=== PATIENT | female | born 1945 | race African-American/Black ===

== ENCOUNTER 2017-01-16 08:48 | Inpatient (IN) | payer OTHER ==
--- NOTE | 2017-01-16 08:57 | PDOC ---
History of Present Illness <Glynn Reyes - Last Filed: 01/16/17 10:54> - History of Present Illness Initial Comments: 01/16/17 08:56 Patient is a 72 year old female with history of NIDDM, HTN, HLD and breast CA s/ p left mastectomy (2004) who was BIBA with report of possible TIA/CVA. Patient woke at 1:00 to go to the bathroom and felt dizzy, described as the room was spinning, not being light headed. The feeling was persistent and unchanged when standing or lying still. Patient went back to sleep and endorses feeling unchanged upon waking at 05:00 and again at 06:00. At 06:00 patient Patient takes daily ASA 81mg. and was still feeling dixxyafter report of slurred speech at 1 hour ago. EMS reports benign neuro exam at home. 01/16/17 09:25 01/16/17 10:02 01/16/17 10:47 CBC WBC 7.4 K/mm3 (4.0-10.0) D 01/16/17 09:50 RBC 4.61 M/mm3 (3.60-5.2) 01/16/17 09:50 Hgb 12.6 GM/dL (10.7-15.3) D 01/16/17 09:50 Hct 38.0 % (32.4-45.2) 01/16/17 09:50 MCV 82.3 fl (80-96) 01/16/17 09:50 MCH 27.2 pg (25.7-33.7) 01/16/17 09:50 MCHC 33.1 g/dl (32.0-36.0) 01/16/17 09:50 RDW 16.9 % (11.6-15.6) H 01/16/17 09:50 Plt Count 204 K/MM3 (134-434) 01/16/17 09:50 MPV 8.5 fl (7.5-11.1) 01/16/17 09:50 Neutrophils % 65.6 % (42.8-82.8) D 01/16/17 09:50 Lymphocytes % 26.5 % (8-40) D 01/16/17 09:50 Monocytes % 6.4 % (3.8-10.2) D 01/16/17 09:50 Eosinophils % 1.2 % (0-4.5) D 01/16/17 09:50 Basophils % 0.3 % (0-2.0) 01/16/17 09:50 CMP Sodium 139 mmol/L (136-145) 01/16/17 09:50 Potassium 3.8 mmol/L (3.5-5.1) 01/16/17 09:50 Chloride 101 mmol/L (98-107) 01/16/17 09:50 Carbon Dioxide 30 mmol/L (21-32) 01/16/17 09:50 Anion Gap 8 (8-16) 01/16/17 09:50 BUN 12 mg/dL (7-18) D 01/16/17 09:50 Creatinine 0.7 mg/dL (0.55-1.02) 01/16/17 09:50 Creat Clearance w eGFR > 60 (>60) 01/16/17 09:50 Random Glucose 198 mg/dL (74-106) H D 01/16/17 09:50 Calcium 8.6 mg/dL (8.5-10.1) 01/16/17 09:50 Total Bilirubin 0.9 mg/dL (0.2-1.0) D 01/16/17 09:50 AST 14 U/L (15-37) L D 01/16/17 09:50 ALT 21 U/L (12-78) 01/16/17 09:50 Alkaline Phosphatase 81 U/L (45-117) 01/16/17 09:50 Total Protein 7.8 g/dl (6.4-8.2) 01/16/17 09:50 Albumin 3.7 g/dl (3.4-5.0) 01/16/17 09:50 Triglycerides 158 mg/dL (35-160) 01/16/17 09:50 Cholesterol 130 mg/dL (50-200) 01/16/17 09:50 Total LDL Cholesterol 56 mg/dL (5-100) 01/16/17 09:50 HDL Cholesterol 55 mg/dL (40-60) 01/16/17 09:50 Grossly within normal limits, non concerning 01/16/17 10:49 Patient Risk Score is moderate (5) Dr. Adam to follow up with qingpo <Stephen Castro - Last Filed: 01/16/17 13:31> - General Chief Complaint: CVA/TIA Stated Complaint: CVA/TIA Time Seen by Provider: 01/16/17 08:55 Past History <Glynn Reyes - Last Filed: 01/16/17 10:54> - Past Medical History Anemia: No Asthma: No Cancer: Yes (left breast) Cardiac Disorders: No CVA: No COPD: No CHF: No Dementia: No Diabetes: Yes GI Disorders: No Disorders: No HTN: Yes Hypercholesterolemia: Yes Liver Disease: No Seizures: No Thyroid Disease: No - Surgical History Abdominal Surgery: No Appendectomy: No Cardiac Surgery: No Cholecystectomy: No Lung Surgery: No Neurologic Surgery: No Orthopedic Surgery: No - Suicide/Smoking/Psychosocial Hx Smoking History: Never smoked Have you smoked in the past 12 months: No Hx Alcohol Use: Yes (social) Drug/Substance Use Hx: No Substance Use Type: None Hx Substance Use Treatment: No <Stephen Castro - Last Filed: 01/16/17 13:31> - Past Medical History Allergies/Adverse Reactions: Allergies Allergy/AdvReac Type Severity Reaction Status Date / Time No Known Allergies Allergy Unverified 01/16/17 09:00 Home Medications: Ambulatory Orders Hydrochlorothiazide [Hctz -] 12.5 mg PO DAILY 01/26/16 Metformin HCl 500 mg PO BID 01/26/16 Metoprolol Succinate [Toprol XL -] 12.5 mg PO DAILY 01/26/16 Aspirin [Aspirin EC] 81 mg PO DAILY 01/27/16 Atorvastatin Ca [Lipitor] 20 mg PO HS 01/27/16 *Physical Exam - Vital Signs Last Vital Signs Temp Pulse Resp BP Pulse Ox 97.9 F 76 14 146/71 100 01/16/17 09:02 01/16/17 10:13 01/16/17 10:13 01/16/17 10:13 01/16/17 10:13 <Glynn Reyes - Last Filed: 01/16/17 10:54> ED Treatment Course - LABORATORY CBC & Chemistry Diagram: 01/16/17 09:50 01/16/17 09:50 - ADDITIONAL ORDERS Additional order review: Laboratory Results 01/16/17 09:50 Sodium 139 Potassium 3.8 Chloride 101 Carbon Dioxide 30 Anion Gap 8 BUN 12 D Creatinine 0.7 Creat Clearance w eGFR > 60 Random Glucose 198 H D Calcium 8.6 Total Bilirubin 0.9 D AST 14 L D ALT 21 Alkaline Phosphatase 81 Total Protein 7.8 Albumin 3.7 Triglycerides 158 Cholesterol 130 Total LDL Cholesterol 56 HDL Cholesterol 55 01/16/17 09:50 RBC 4.61 MCV 82.3 MCHC 33.1 RDW 16.9 H MPV 8.5 Neutrophils % 65.6 D Lymphocytes % 26.5 D Monocytes % 6.4 D Eosinophils % 1.2 D Basophils % 0.3 - Additional Consults Time Called: 10:50 Consult/PCP: Dr. Isbell (Neurology configuration management administrator) <Glynn Reyes - Last Filed: 01/16/17 10:54> - LABORATORY CBC & Chemistry Diagram: 01/16/17 09:50 01/16/17 09:50 - RADIOLOGY Radiograph Interpretation: 01/16/17 11:46 EXAM: CT head without contrast. INDICATION: CVA. Neurologic occurrence. TECHNIQUE: Contiguous axial CT images of the head were obtained without contrast. Coronal and sagittal reconstructions obtained. COMPARISON: None. FINDINGS: There is no acute intracranial hemorrhage or focal extra-axial collection. There is no compelling evidence of acute, territorial transcortical infarction at this time. MRI is more sensitive in detecting acute infarction. There is generalized, age appropriate volume loss secondary prominence of the CSF spaces. There is no mass effect, midline shift or hydrocephalus. There is confluent hypoattenuation in the deep cerebral white matter reflecting microvascular ischemic changes. Dense calcific atherosclerosis present along bilateral internal carotid artery siphons. The sella turcica is expanded and partially empty. The calvarium is intact. There is mild hyperostosis frontalis interna. The visualized paranasal sinuses and mastoid air cells are clear. IMPRESSION: 1. No acute intracranial hemorrhage, mass effects or hydrocephalus. No compelling evidence of acute , territorial transcortical infarct. MRI is more sensitive in detecting acute infarction. 2. Generalized, age appropriate volume loss with mild microvascular ischemic changes in cerebral white matter. <Stephen Castro - Last Filed: 01/16/17 13:31> Medical Decision Making - Medical Decision Making 01/16/17 09:14 72 year old female with reported slurred speech with no neurological deficits by EMS Ddx includes but is not limited to LAYLA, CVA, seizure, R/O CVA CBC WBC 7.4 K/mm3 (4.0-10.0) D 01/16/17 09:50 RBC 4.61 M/mm3 (3.60-5.2) 01/16/17 09:50 Hgb 12.6 GM/dL (10.7-15.3) D 01/16/17 09:50 Hct 38.0 % (32.4-45.2) 01/16/17 09:50 MCV 82.3 fl (80-96) 01/16/17 09:50 MCH 27.2 pg (25.7-33.7) 01/16/17 09:50 MCHC 33.1 g/dl (32.0-36.0) 01/16/17 09:50 RDW 16.9 % (11.6-15.6) H 01/16/17 09:50 Plt Count 204 K/MM3 (134-434) 01/16/17 09:50 MPV 8.5 fl (7.5-11.1) 01/16/17 09:50 Neutrophils % 65.6 % (42.8-82.8) D 01/16/17 09:50 Lymphocytes % 26.5 % (8-40) D 01/16/17 09:50 Monocytes % 6.4 % (3.8-10.2) D 01/16/17 09:50 Eosinophils % 1.2 % (0-4.5) D 01/16/17 09:50 Basophils % 0.3 % (0-2.0) 01/16/17 09:50 CMP Sodium 139 mmol/L (136-145) 01/16/17 09:50 Potassium 3.8 mmol/L (3.5-5.1) 01/16/17 09:50 Chloride 101 mmol/L (98-107) 01/16/17 09:50 Carbon Dioxide 30 mmol/L (21-32) 01/16/17 09:50 Anion Gap 8 (8-16) 01/16/17 09:50 BUN 12 mg/dL (7-18) D 01/16/17 09:50 Creatinine 0.7 mg/dL (0.55-1.02) 01/16/17 09:50 Creat Clearance w eGFR > 60 (>60) 01/16/17 09:50 Random Glucose 198 mg/dL (74-106) H D 01/16/17 09:50 Calcium 8.6 mg/dL (8.5-10.1) 01/16/17 09:50 Total Bilirubin 0.9 mg/dL (0.2-1.0) D 01/16/17 09:50 AST 14 U/L (15-37) L D 01/16/17 09:50 ALT 21 U/L (12-78) 01/16/17 09:50 Alkaline Phosphatase 81 U/L (45-117) 01/16/17 09:50 Total Protein 7.8 g/dl (6.4-8.2) 01/16/17 09:50 Albumin 3.7 g/dl (3.4-5.0) 01/16/17 09:50 Triglycerides 158 mg/dL (35-160) 01/16/17 09:50 Cholesterol 130 mg/dL (50-200) 01/16/17 09:50 Total LDL Cholesterol 56 mg/dL (5-100) 01/16/17 09:50 HDL Cholesterol 55 mg/dL (40-60) 01/16/17 09:50 Grossly within normal limits Laboratory Tests 01/16/17 09:50 PT with INR 11.20 INR 0.99 Within normal limits Urine Test Results Urine Color Ltyellow 01/16/17 10:20 Urine Appearance Clear 01/16/17 10:20 Urine pH 7.0 (5.0-8.0) 01/16/17 10:20 Urine Protein Negative (NEGATIVE) 01/16/17 10:20 Urine Glucose (UA) Negative (NEGATIVE) 01/16/17 10:20 Urine Ketones Negative (NEGATIVE) 01/16/17 10:20 Urine Blood Negative (NEGATIVE) 01/16/17 10:20 Urine Nitrite Negative (NEGATIVE) 01/16/17 10:20 Urine Bilirubin Negative (NEGATIVE) 01/16/17 10:20 non concerning for uti CT head shows no acute intracranial pathology CXR shows cardiomegaly without evidence of pneumonia, CHF, pneumothorax 01/16/17 11:37 Patient is on single anti-platelet therapy (ASA) and had several hours of unresolved dizziness and report of slurred speech with no neurological deficits on presentation concerning for TIA. NIH score: 0. ABCD2 score: 5 (moderate) concerning for future TIA/CVA. Patient may benefit from additional anti- platelet therapy. Dr. Adam spoke with neurology who would like to observe patient overnight. Patient of Dr. Martin Winters. Hospitalist paged <Stephen Castro - Last Filed: 01/16/17 13:31> *DC/Admit/Observation/Transfer <Glynn Reyes - Last Filed: 01/16/17 10:54> - Discharge Dispostion Admit: Yes <Stephen Castro - Last Filed: 01/16/17 13:31> Diagnosis at time of Disposition: Transient cerebral ischemia Qualifiers: Transient cerebral ischemia type: other Qualified Code(s): G45.8 - Other transient cerebral ischemic attacks and related syndromes; G45.8 - Other transient cerebral ischemic attacks and related syndromes; G45.8 - Other transient cerebral ischemic attacks and related syndromes
[2017-01-16 09:07] VITALS: BMI 43.1
[2017-01-16] MEDS: SODIUM CHLORIDE 1,000 ML IV SCH (09:37)
--- NOTE | 2017-01-16 09:44 | PDOC ---
Attending Attestation - Resident Resident Name: Stephen Castro - ED Attending Attestation I have performed the following: I have examined & evaluated the patient, The case was reviewed & discussed with the resident, I agree w/resident's findings & plan, Exceptions are as noted - HPI HPI: 01/16/17 12:01 72 years old past medical history significant for hypertension diabetes high cholesterol presents to the emergency department with vertigo since 1 AM, slurred speech this morning noted by daughter. Initially patient went back to sleep was waiting to see if symptoms would resolve when she reawoke symptoms were still present This morning at approximately 7 8 AM when she was on the phone with her daughter her daughter noted slurred speech her son who is a EMT called EMS and patient was brought to the hospital Upon arrival to the emergency Department patient was asymptomatic with an intact neurologic examination - Physicial Exam PE: 01/16/17 12:00 Vitals: Triage Vital signs reviewed General Appearance: no acute distress, well nourished well developed, Head: Atraumatic, Eyes: Pupils equal reactive round, extraocular movement intact Neck: Supple;No Nucal rigidity Chest Wall: Nontender Cardiac: Regular rate and rhythym, no murmurs, no rubs, no gallops, Lungs: Clear to auscultation bilateral, good air movement bilaterally, Abdomen: Soft, non distended, normal bowel sounds, non tender to palpation Extremities: Full range of motion to all extremities, no cyanosis, clubbing, or edema Skin: Warm and dry, no rashes or lesions, no rash, no petechiae Neuro: AOX3; Cranial Nerves 2-12 grossly intact, Strength intact to all extremities, Sensation intact to all extremities,gait normal Psych: normal mood, normal affect - Medical Decision Making 01/16/17 12:00 72 years old with vertigo persistent constant since 1 AM and slurred speech this morning noted by daughter. Both symptoms have resolved Given history of hypertension diabetes high cholesterol age patient's ABCD to risk stratification score for TIA is 5. Given moderate risk neurology has been consultation will observe for neurology consultation and MRI brain MRA head and neck and further management
[2017-01-16 09:57] LABS: BASOPHIL 0.3 % (0-2.0); EOSINOPHIL 1.2 % (0-4.5); MCH 27.2 pg (25.7-33.7); MCHC 33.1 g/dl (32.0-36.0); MEAN CELL VOLUME 82.3 fl (80-96); MEAN PLT VOLUME 8.5 fl (7.5-11.1); NEUTROPHILS 65.6 % (42.8-82.8); PLATELET COUNT 204 K/MM3 (134-434); RDW 16.9 % (11.6-15.6); WHITE BLOOD COUNT 7.4 K/mm3 (4.0-10.0)
[2017-01-16 10:21] LABS: ALBUMIN 3.7 g/dl (3.4-5.0); ANION GAP 8 (8-16); CALCIUM 8.6 mg/dL (8.5-10.1); CHOLESTEROL 130 mg/dL (50-200); CO2 30 mmol/L (21-32); CREATININE 0.7 mg/dL (0.55-1.02); GLUCOSE,RANDOM 198 mg/dL (74-106); SGOT/AST 14 U/L (15-37); SGPT/ALT 21 U/L (12-78)
[2017-01-16 10:23] LABS: ALK PHOS 81 U/L (45-117); BILIRUBIN,TOTAL 0.9 mg/dL (0.2-1.0); INR 0.99 (0.82-1.09); PROTHROMBIN TIME (PATIENT) 11.2 SEC (9.98-11.88); TOT PROT 7.8 g/dl (6.4-8.2)
[2017-01-16 10:32] LABS: URINE APPEARANCE CLEAR; URINE BILIRUBIN NEGATIVE (NEGATIVE); URINE BLOOD NEGATIVE (NEGATIVE); URINE COLOR LTYELLOW; URINE GLUCOSE (UA) NEGATIVE (NEGATIVE); URINE KETONE NEGATIVE (NEGATIVE); URINE NITRITE NEGATIVE (NEGATIVE); URINE PROTEIN NEGATIVE (NEGATIVE); URINE UROBILINOGEN NEGATIVE mg/dL (0.2-1.0)
--- NOTE | 2017-01-16 13:37 | HP ---
CHIEF COMPLAINT: slurred speech and vertigo at home PCP: HISTORY OF PRESENT ILLNESS: Patient is a 72 year old female with a significant past medical history of diabetes mellitus, hypertension, and HLD, she came to the ED after experiencing a few episodes of vertigo when she woke up this morning. She denied headache, double vision or arm/leg weakness. Family reported patient was having slurred speech She was brought into the ED for her acute emergent condition. ER course was notable for: (1) glucose 198 (2) AST 14 (3) head ct no ICH, gen age appropriate volume Recent Travel: PAST MEDICAL HISTORY: iabetes mellitus, hypertension, and HLD PAST SURGICAL HISTORY: Social History: Smoking: n.a Alcohol: n.a Drugs: n.a Family History: Allergies No Known Allergies Allergy (Unverified 01/16/17 09:00) HOME MEDICATIONS: Home Medications Medication Instructions Recorded Hydrochlorothiazide [Hctz -] 12.5 mg PO DAILY 01/26/16 Metformin HCl 500 mg PO BID 01/26/16 Metoprolol Succinate [Toprol XL -] 12.5 mg PO DAILY 01/26/16 Aspirin [Aspirin EC] 81 mg PO DAILY 01/27/16 Atorvastatin Ca [Lipitor] 20 mg PO HS 01/27/16 REVIEW OF SYSTEMS CONSTITUTIONAL: Absent: fever, chills, diaphoresis, generalized weakness, malaise, loss of appetite, weight change HEENT: Absent: rhinorrhea, nasal congestion, throat pain, throat swelling, difficulty swallowing, mouth swelling, ear pain, eye pain, visual changes CARDIOVASCULAR: Absent: chest pain, syncope, palpitations, irregular heart rate, lightheadedness , peripheral edema RESPIRATORY: Absent: cough, shortness of breath, dyspnea with exertion, orthopnea, wheezing, stridor, hemoptysis GASTROINTESTINAL: Absent: abdominal pain, abdominal distension, nausea, vomiting, diarrhea, constipation, melena, hematochezia GENITOURINARY: Absent: dysuria, frequency, urgency, hesitancy, hematuria, flank pain, genital pain MUSCULOSKELETAL: Absent: myalgia, arthralgia, joint swelling, back pain, neck pain SKIN: Absent: rash, itching, pallor HEMATOLOGIC/IMMUNOLOGIC: Absent: easy bleeding, easy bruising, lymphadenopathy, frequent infections ENDOCRINE: Absent: unexplained weight gain, unexplained weight loss, heat intolerance, cold intolerance NEUROLOGIC: Absent: headache, focal weakness or paresthesias, dizziness, unsteady gait, seizure, mental status changes, bladder or bowel incontinence PSYCHIATRIC: Absent: anxiety, depression, suicidal or homicidal ideation, hallucinations. PHYSICAL EXAMINATION Vital Signs - 24 hr 01/16/17 01/16/17 01/16/17 09:02 10:13 13:23 Temperature 97.9 F Pulse Rate 75 Pulse Rate [ 76 77 Apical] Respiratory 18 14 14 Rate Blood Pressure 166/69 Blood Pressure 146/71 151/77 [Right Arm] O2 Sat by Pulse 99 100 98 Oximetry (%) GENERAL: Awake, alert, and fully oriented, in no acute distress. HEAD: Normal with no signs of trauma. EYES: Pupils equal, round and reactive to light, extraocular movements intact, sclera anicteric, conjunctiva clear. No lid lag. EARS, NOSE, THROAT: Ears normal, nares patent, oropharynx clear without exudates. Moist mucous membranes. NECK: Normal range of motion, supple without lymphadenopathy, JVD, or masses. LUNGS: Breath sounds equal, clear to auscultation bilaterally. No wheezes, and no crackles. No accessory muscle use. HEART: Regular rate and rhythm, normal S1 and S2 without murmur, rub or gallop. ABDOMEN: Soft, nontender, not distended, normoactive bowel sounds, no guarding, no rebound, no masses. No hepatomegaly or splenomegaly. MUSCULOSKELETAL: Normal range of motion at all joints. No bony deformities or tenderness. No CVA tenderness. UPPER EXTREMITIES: 2+ pulses, warm, well-perfused. No cyanosis. No clubbing. No peripheral edema. LOWER EXTREMITIES: 2+ pulses, warm, well-perfused. No calf tenderness. No peripheral edema. NEUROLOGICAL: Cranial nerves II-XII intact. Normal speech. Normal gait. PSYCHIATRIC: Cooperative. Good eye contact. Appropriate mood and affect. SKIN: Warm, dry, normal turgor, no rashes or lesions noted, normal capillary refill. Laboratory Results - last 24 hr 01/16/17 01/16/17 01/16/17 08:57 09:50 09:50 WBC 7.4 D RBC 4.61 Hgb 12.6 D Hct 38.0 MCV 82.3 MCH 27.2 MCHC 33.1 RDW 16.9 H Plt Count 204 MPV 8.5 Neutrophils % 65.6 D Lymphocytes % 26.5 D Monocytes % 6.4 D Eosinophils % 1.2 D Basophils % 0.3 PT with INR 11.20 INR 0.99 Sodium Potassium Chloride Carbon Dioxide Anion Gap BUN Creatinine Creat Clearance w eGFR Random Glucose Calcium Total Bilirubin AST ALT Alkaline Phosphatase Total Protein Albumin Triglycerides Cholesterol Total LDL Cholesterol HDL Cholesterol Urine Color Urine Appearance Urine pH Urine Protein Urine Glucose (UA) Urine Ketones Urine Blood Urine Nitrite Urine Bilirubin Urine Urobilinogen Blood Type O POSITIVE Antibody Screen Negative 01/16/17 01/16/17 09:50 10:20 WBC RBC Hgb Hct MCV MCH MCHC RDW Plt Count MPV Neutrophils % Lymphocytes % Monocytes % Eosinophils % Basophils % PT with INR INR Sodium 139 Potassium 3.8 Chloride 101 Carbon Dioxide 30 Anion Gap 8 BUN 12 D Creatinine 0.7 Creat Clearance w eGFR > 60 Random Glucose 198 H D Calcium 8.6 Total Bilirubin 0.9 D AST 14 L D ALT 21 Alkaline Phosphatase 81 Total Protein 7.8 Albumin 3.7 Triglycerides 158 Cholesterol 130 Total LDL Cholesterol 56 HDL Cholesterol 55 Urine Color Ltyellow Urine Appearance Clear Urine pH 7.0 Urine Protein Negative Urine Glucose (UA) Negative Urine Ketones Negative Urine Blood Negative Urine Nitrite Negative Urine Bilirubin Negative Urine Urobilinogen Negative Blood Type Antibody Screen ASSESSMENT/PLAN: Patient is a 72 year old female with a significant past medical history of diabetes mellitus, hypertension, and HLD, she came to the ED after experiencing a few episodes of vertigo when she woke up this morning. She denied headache, double vision or arm/leg weakness. Family reported patient was having slurred speech She was brought into the ED for her acute emergent condition. Neurology: Vertigo, acute Rule out TIA Head CT negative For brain MRI Lipid panel On ASA, Plavix On hypertensive medications Physical therapy for vertigo Carotid ultrasound Carotid monitoring Orthostatics q8 Hmga1c a.m F.E.N. Fluids: tolerating PO Electrolytes: monitor Nutrition: diabetic diet Dispositon: OBS full code
--- NOTE | 2017-01-16 15:28 | CON.NEURO ---
Consult - History of Present Illness History of Present Illness: woke up in night with slurring of speech and vertigo sensation HPI 72 year old female history of DM, HTN and Hyperlipidemia came to ed with vertigo sensation when she woke up in morning. She denies any headhace , dysphagia and diplopia or arms or leg weakness. Patient did not thought she had slurring of speech but her daughter thought so. She was brought to ed and her abcd score was [address] head is nromal she takes baby apsirin and statin at home - Past Medical History Cardio/Vascular: Yes: HTN, Hyperlipdemia Endocrine: Yes: Diabetes Mellitus - Past Surgical History Past Surgical History: Yes: Mastectomy (left) - Alcohol/Substance Use Hx Alcohol Use: Yes (social) - Smoking History Smoking history: Never smoked Have you smoked in the past 12 months: No Home Medications - Allergies Allergies/Adverse Reactions: Allergies Allergy/AdvReac Type Severity Reaction Status Date / Time No Known Allergies Allergy Unverified 01/16/17 09:00 - Home Medications Home Medications: Ambulatory Orders Hydrochlorothiazide [Hctz -] 12.5 mg PO DAILY 01/26/16 Metformin HCl 500 mg PO BID 01/26/16 Metoprolol Succinate [Toprol XL -] 12.5 mg PO DAILY 01/26/16 Aspirin [Aspirin EC] 81 mg PO DAILY 01/27/16 Atorvastatin Ca [Lipitor] 20 mg PO HS 01/27/16 Physical Exam-Neuro Vital Signs: Vital Signs Temperature 97.9 F 01/16/17 09:02 Pulse Rate 80 01/16/17 14:50 Respiratory Rate 14 01/16/17 14:50 Blood Pressure 135/55 01/16/17 14:50 O2 Sat by Pulse Oximetry (%) 98 01/16/17 14:50 Labs: INR, PTT INR 0.99 (0.82-1.09) 01/16/17 09:50 Imaging - Results Cat Scan: Report Reviewed Assessment/Plan cc woke up in night with slurring of speech and vertigo sensation HPI 72 year old female history of DM, HTN and Hyperlipidemia came to ed with vertigo sensation when she woke up in morning. She denies any headhace , dysphagia and diplopia or arms or leg weakness. Patient did not thought she had slurring of speech but her daughter thought so. She was brought to ed and her abcd score was [address] head is nromal she takes baby apsirin and statin at home Past Medical History as above Social History non smoker and no substance abuse Family History Non contributory Medication Aspirin 81 mg once a day Metoprolol er 12.5 mg once a day hctz 12.5 mg once a day metformin 500 mg bid atrovastatin 10 mg qs Neurological Examination Alert oriented x 3, speech is normal CN all intact motor 5/5 all ext sensation is normal FTN and HTN is normal CT head is normal Assessment-- Most likley TIA given risk factor of DM, HTN AND Hyperlipidemia Plan would do stroke work up carotid ultrasound echo - no need for PT, SPEECh as symptoms resolved - control risk factor - increase atorvastatin 20 mg qhs d/c aspirin and start plavix neuro check will continue to follow with primary Thanks for consult Oleg Isbell MD
[2017-01-16 17:08] LABS: URINE LEUK ESTERASE 3+ (NEGATIVE)
[2017-01-16] MEDS: METOPROLOL SUCCINATE 25 MG TAB.SR.24H (FP) PO SCH (19:09)
[2017-01-16] MEDS: HYDROCHLOROTHIAZIDE 12.5 MG CAPSULE (FP) PO SCH (19:09)
[2017-01-16] MEDS ORDERED: ATORVASTATIN CA 20 MG TABLET (FP) PO SCH (22:00)
[2017-01-16] MEDS: CEFTRIAXONE 1 G/50 ML PREMIX 50 ML IVPB SCH (22:55)
[2017-01-16] MEDS: INSULIN SLIDING SCALE (NOVOLOG) 1 VIAL SQ SCH (23:02)
[2017-01-17] MEDS: INSULIN SLIDING SCALE (NOVOLOG) 1 VIAL SQ SCH ×2 (06:09→11:51)
[2017-01-17 07:38] LABS: BASOPHIL 0.4 % (0-2.0); EOSINOPHIL 1.6 % (0-4.5); MCH 27.6 pg (25.7-33.7); MCHC 32.9 g/dl (32.0-36.0); MEAN CELL VOLUME 83.9 fl (80-96); PLATELET COUNT 212 K/MM3 (134-434); RDW 17.1 % (11.6-15.6); WHITE BLOOD COUNT 7.9 K/mm3 (4.0-10.0)
[2017-01-17 07:49] LABS: ANION GAP 8 (8-16); CALCIUM 8.6 mg/dL (8.5-10.1); CHOLESTEROL 136 mg/dL (50-200); CO2 29 mmol/L (21-32); CREATININE 0.7 mg/dL (0.55-1.02); GLUCOSE,RANDOM 156 mg/dL (74-106)
[2017-01-17 07:54] LABS: CPK 48 IU/L (26-192); TROPONIN I < 0.02 ng/ml (0.00-0.05)
[2017-01-17] MEDS: SODIUM CHLORIDE 1,000 ML IV SCH (09:08)
[2017-01-17] MEDS: CEFTRIAXONE 1 G/50 ML PREMIX 50 ML IVPB SCH (09:09)
[2017-01-17] MEDS: HYDROCHLOROTHIAZIDE 12.5 MG CAPSULE (FP) PO SCH (09:09)
[2017-01-17] MEDS: METOPROLOL SUCCINATE 25 MG TAB.SR.24H (FP) PO SCH (09:09)
[2017-01-17] MEDS ORDERED: ASPIRIN COATED 81 MG TABLET.EC PO SCH (10:00)
[2017-01-17] MEDS ORDERED: CLOPIDOGREL BISULFATE 75 MG TABLET (FP) PO SCH (10:00)
--- NOTE | 2017-01-17 10:34 | PN ---
Progress Note (short form) - Note Progress Note: woke up in night with slurring of speech and vertigo sensation on january 16 morning HPI 72 year old female history of DM, HTN and Hyperlipidemia came to ed with vertigo sensation when she woke up in morning. She denies any headhace , dysphagia and diplopia or arms or leg weakness. Patient did not thought she had slurring of speech but her daughter thought so. She was brought to ed and her abcd score was [address] head is nromal she takes baby apsirin and statin at home Neurological Examination Alert oriented x 3, speech is normal CN all intact motor 5/5 all ext sensation is normal FTN and HTN is normal CT head is normal Assessment-- Most likley TIA given risk factor of DM, HTN AND Hyperlipidemia Plan carotid ultrasound was unremarkable, mri of brain done and report pending - no need for PT, SPEECh as symptoms resolved - continue atorvastatin and plavix, do not give aspirin if mri of brain is normal, she can be discharged from neurological point of view , and follow up with me in clinic Thanks for consult Oleg Isbell MD
--- NOTE | 2017-01-17 12:57 | EKG ---
Test Reason : Blood Pressure : / mmHG Vent. Rate : 073 BPM Atrial Rate : 073 BPM P-R Int : 210 ms QRS Dur : 070 ms QT Int : 358 ms P-R-T Axes : 069 037 075 degrees QTc Int : 394 ms SINUS RHYTHM WITH SINUS ARRHYTHMIA WITH 1ST DEGREE A-V BLOCK POOR R WAVE PROGRESSION ABNORMAL ECG WHEN COMPARED WITH ECG OF 16-JAN-2017 08:55, QT HAS SHORTENED CLINICAL CORRELATION IS RECOMMENDED Confirmed by ZAHRAA RAINEY, ERIC ([id number] on 01/17/2017 12:57:19 PM Referred By: Roel JOHNSON Confirmed By:ERIC VITAL MD
--- NOTE | 2017-01-17 13:15 | EKG ---
Test Reason : Blood Pressure : / mmHG Vent. Rate : 072 BPM Atrial Rate : 072 BPM P-R Int : 222 ms QRS Dur : 066 ms QT Int : 412 ms P-R-T Axes : 061 031 065 degrees QTc Int : 451 ms SINUS RHYTHM WITH 1ST DEGREE A-V BLOCK POOR R WAVE PROGRESSION ABNORMAL ECG WHEN COMPARED WITH ECG OF 26-JAN-2016 19:35, HI INTERVAL HAS INCREASED VENT. RATE HAS DECREASED BY 70 BPM NONSPECIFIC T WAVE ABNORMALITY NOW EVIDENT IN LATERAL LEADS Confirmed by ERIC VITAL MD ([id number]) on 01/17/2017 1:14:35 PM Referred By: Confirmed By:ERIC VITAL MD
--- NOTE | 2017-01-17 14:22 | DS ---
Physical Exam: SUBJECTIVE: Patient seen and examined OBJECTIVE: Patient has a follow up appointment with her PCP and with her bulldozer/loader/compactor/scraper on Vital Signs Period Temp Pulse Resp BP Sys/Garcia Pulse Ox Last 24 Hr 98.1 F-98.4 F 70-82 18-18 124-135/63-66 98-98 PHYSICAL EXAM GENERAL: The patient is awake, alert, and fully oriented, in no acute distress. HEAD: Normal with no signs of trauma. EYES: PERRL, extraocular movements intact, sclera anicteric, conjunctiva clear. ENT: Ears normal, nares patent, oropharynx clear without exudates, moist mucous membranes. NECK: Trachea midline, full range of motion, supple. LUNGS: Breath sounds equal, clear to auscultation bilaterally, no wheezes, no crackles, no accessory muscle use. HEART: Regular rate and rhythm, S1, S2 without murmur, rub or gallop. ABDOMEN: Soft, nontender, nondistended, normoactive bowel sounds, no guarding, no rebound, no hepatosplenomegaly, no masses. EXTREMITIES: 2+ pulses, warm, well-perfused, no edema. NEUROLOGICAL: Cranial nerves II through XII grossly intact. Normal speech, gait not observed. PSYCH: Normal mood, normal affect. SKIN: Warm, dry, normal turgor, no rashes or lesions noted. LABS Laboratory Results - last 24 hr 01/16/17 01/16/17 01/16/17 17:33 19:30 23:01 WBC RBC Hgb Hct MCV MCH MCHC RDW Plt Count MPV Neutrophils % Lymphocytes % Monocytes % Eosinophils % Basophils % PTT (Actin FS) Sodium Potassium Chloride Carbon Dioxide Anion Gap BUN Creatinine POC Glucometer 166 170 Random Glucose Calcium Creatine Kinase Troponin I < 0.02 Triglycerides Cholesterol Total LDL Cholesterol HDL Cholesterol 01/17/17 01/17/17 01/17/17 05:42 06:30 06:30 WBC 7.9 RBC 4.33 Hgb 12.0 Hct 36.4 MCV 83.9 MCH 27.6 MCHC 32.9 RDW 17.1 H Plt Count 212 MPV 9.0 Neutrophils % 59.0 Lymphocytes % 32.4 D Monocytes % 6.6 Eosinophils % 1.6 Basophils % 0.4 PTT (Actin FS) 29.0 Sodium Potassium Chloride Carbon Dioxide Anion Gap BUN Creatinine POC Glucometer 162 Random Glucose Calcium Creatine Kinase Troponin I Triglycerides Cholesterol Total LDL Cholesterol HDL Cholesterol 01/17/17 01/17/17 06:30 11:34 WBC RBC Hgb Hct MCV MCH MCHC RDW Plt Count MPV Neutrophils % Lymphocytes % Monocytes % Eosinophils % Basophils % PTT (Actin FS) Sodium 140 Potassium 3.9 Chloride 103 Carbon Dioxide 29 Anion Gap 8 BUN 13 Creatinine 0.7 POC Glucometer 170 Random Glucose 156 H D Calcium 8.6 Creatine Kinase 48 Troponin I < 0.02 Triglycerides 130 Cholesterol 136 Total LDL Cholesterol 64 HDL Cholesterol 52 HOSPITAL COURSE: Date of Admission:01/16/17 Date of Discharge: 01/17/17 Patient is a 72 year old female with a significant past medical history of diabetes mellitus, hypertension and HLD. Patient came to the ED after experiencing a few episodes of vertigo when she woke up this morning. She denied headache, double vision or arm/leg weakness. Family reported patient was having slurred speech She was brought into the ED for her acute emergent condition. A brain MRI is negative for any acute process, no evidence of acute infarction, no mass effect, midline shift or hydrocephalus. However, a TIA cannot be excluded. Patient is to continue Plavix and see Dr. Isbell within 1 week after discharge. Imaging: Carotid ultrasound: negative MRI brain: negative for any acute process, no evidence of acute infarction, no mass effect, midline shift or hydrocephalus Neurology: Vertigo, resolved TIA cannot be ruled out secondary to risk factors history (diabetes, hypertension, hyperlipidemia) As per neurology, continue Atorvastatin and Plavix, cleared by neurologist for discharge Patient to follow up with Dr. Isbell within 1 week after discharge Discontinue aspirin Patient is able to ambulate in the room freely without any episodes of vertigo or dizziness Speech is clear, no neuro deficits noted Tolerating PO, no coughing, no dysphagia Cardotid within normal limits No events on tele Lipid panel reviewed, pt on Atorvastatin Blood pressure controlled Blood sugars within normal limits Disposition: Patient has follow up appointment with her PCP and bulldozer/loader/compactor/scraper on 01/27/2017 (pt has standing appointment). full code. Minutes to complete discharge: 60 Discharge Summary Reason For Visit: CVA Current Active Problems TIA (transient ischemic attack) (Acute) Condition: Improved - Instructions Diet, Activity, Other Instructions: Ms. Sheehan: You came to the hospital on 01/16/2017 to rule out stroke. A brain MRI was performed which is negative. Please continue the Plavix as ordered, DO NOT TAKE ASPIRIN. Please follow up with Dr. Isbell within 1 week to follow up. Follow up with your bulldozer/loader/compactor/scraper and PCP on 01/27/2017 as you have an appointment already. Please take the antibiotics as prescribed for your UTI, have your urine studies repeated with your primary care physician. Please call me with questions. Angela Eden Boggs PROFESSIONAL ORGANIZER [facility] [phone] Referrals: Terry Chavez MD [Primary Care Provider] - Disposition: HOME - Home Medications Comprehensive Discharge Medication List: Ambulatory Orders Hydrochlorothiazide [Hctz -] 12.5 mg PO DAILY 01/26/16 Metformin HCl 500 mg PO BID 01/26/16 Metoprolol Succinate [Toprol XL -] 12.5 mg PO DAILY 01/26/16 Aspirin [Aspirin EC] 81 mg PO DAILY 01/27/16 Atorvastatin Ca [Lipitor] 20 mg PO HS 01/27/16 This patient is new to me today: No Emergency Visit: Yes ED Registration Date: 01/16/17 Care time: The patient presented to the Emergency Department on the above date and was hospitalized for further evaluation of their emergent condition. Critical Care patient: No - Discharge Referral Referred to [facility] No
[2017-01-17 14:45] VITALS: BP 120/57; PULSE 84; TEMP 99.5
[2017-01-17] MEDS ORDERED: SULFAMETHOXAZOLE/TRIMETHOPRIM 800MG/160MG D.S. TABLET PO SCH (22:00)
== END 2017-01-17 16:39 | disposition home or self-care (01) | DRG 69 ==
LOC: JER 08:48 → JERBED 13:31 → J4S 15:06 → OBSVTOIN 17:15
PROVIDERS: ADMIT Internal Medicine; ATTEND Nurse Practitioner Family
DX: G45.9 Transient cerebral ischemic attack, unspecified (principal); E11.9 Type 2 diabetes mellitus without complications; I10 Essential (primary) hypertension; E78.5 Hyperlipidemia, unspecified; Z85.3 Personal history of malignant neoplasm of breast
CPT/HCPCS: 36415; 70450-TC; 70551-TC; 71010-TC; 80048; 80053; 80061; 81003; 82465; 82550; 83036; 83718; 83721; 84478; 84484; 85025; 85610; 85730; 86850; 86900; 86901; 87086; 93005; 93010; 93880-TC; 99285-25; G0378